=== PATIENT | female | born 1995 | race Caucasian/White ===

== ENCOUNTER 2018-12-04 12:50 | Emergency (ER) | payer OTHER ==
--- NOTE | 2018-12-04 13:15 | EDM.PDOC ---
ED HPI GENERAL MEDICAL PROBLEM - General Chief Complaint: Back Pain or Injury Stated Complaint: LOWER BACK PAIN Time Seen by Provider: 12/04/18 13:05 Source of Information: Reports: Patient History Limitations: Reports: No Limitations - History of Present Illness INITIAL COMMENTS - FREE TEXT/NARRATIVE: 23 YO WF presents to ER complaining of low back pain which began 3 days ago. Pt reports no known injury or history of back problems. Pt states her pain is right lower that radiates to her buttock and right knee. Pt denies any weakness or numbness. Pt able to ambulate but states movements makes her pain worse. Pt unsure if she might be but denies dysuria, urinary frequency or urgency. Pt denies any fever/chills, no nausea/vomiting and no saddle paraesthesias. 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, NSAIDS - Related Data Allergies Allergy/AdvReac Type Severity Reaction Status Date / Time Penicillins Allergy Rash Verified 12/04/18 13:38 Home Meds: Home Meds Nitrofurantoin Monohyd/M-Cryst [Macrobid 100 mg Capsule] 100 mg PO BID #10 capsule 12/04/18 [Rx] traMADol [Ultram] 50 mg PO Q6H PRN #10 tab 12/04/18 [Rx] ED ROS GENERAL - Review of Systems Review Of Systems: See Below Constitutional: Reports: No Symptoms HEENT: Reports: No Symptoms Respiratory: Reports: No Symptoms Cardiovascular: Reports: No Symptoms Endocrine: Reports: No Symptoms GI/Abdominal: Reports: No Symptoms : Reports: No Symptoms Musculoskeletal: Reports: Back Pain Skin: Reports: No Symptoms Neurological: Reports: No Symptoms Psychiatric: Reports: No Symptoms Hematologic/Lymphatic: Reports: No Symptoms ED EXAM,LOWER BACK PAIN/INJURY - Physical Exam Exam: See Below Exam Limited By: No Limitations General Appearance: Alert, WD/WN, No Apparent Distress Head: Atraumatic, Normocephalic Neck: Normal Inspection, Supple, Non-Tender, Full Range of Motion Respiratory/Chest: No Respiratory Distress, Lungs Clear, Normal Breath Sounds, No Accessory Muscle Use, Chest Non-Tender Cardiovascular: Normal Peripheral Pulses, Regular Rate, Rhythm, No Edema, No Gallop, No JVD, No Murmur, No Rub GI/Abdominal: Normal Bowel Sounds, Soft, Non-Tender, No Organomegaly, No Distention, No Abnormal Bruit, No Mass Back Exam: Muscle Spasm, Paraspinal Tenderness Extremities: Normal Inspection, Normal Range of Motion, Non-Tender, No Pedal Edema, Normal Capillary Refill Neurological: Alert, Normal Mood/Affect, Normal Dorsiflexion, CN II-XII Intact, Normal Plantar Flexion, Normal Gait, Normal Reflexes, No Motor/Sensory Deficits , Oriented x 3 Course - Vital Signs Last Recorded V/S: Last Vital Signs Temp 36.8 C 12/04/18 13:22 Pulse 97 12/04/18 13:22 Resp 18 12/04/18 13:22 BP 141/67 H 12/04/18 13:22 Pulse Ox 99 12/04/18 13:22 - Orders/Labs/Meds Labs: Laboratory Tests 12/04/18 12/04/18 Range/Units 13:35 13:35 Specimen Type Urinvoid Urine Color Yellow (YELLOW) Urine Appearance Clear (CLEAR) Urine pH 5.5 (5.0-9.0) Ur Specific Quinn >= 1.030 (1.005-1.030) Urine Protein Trace H (NEGATIVE) mg/dL Urine Glucose (UA) Negative (NEGATIVE) mg/dL Urine Ketones 40 H (NEGATIVE) mg/dL Urine Occult Blood Negative (NEGATIVE) Urine Nitrite Negative (NEGATIVE) Urine Bilirubin Small H (NEGATIVE) Urine Urobilinogen 1.0 (0.2-1.0) E.U./dL Ur Leukocyte Esterase Negative (NEGATIVE) Urine RBC 0-5 (0-5) /HPF Urine WBC 0-5 (0-5) /HPF Ur Epithelial Cells Many H /LPF Urine Bacteria Many H (NONE TO FEW) /HPF Urine Mucus Many H (NEGATIVE) /LPF Urine HCG, Qual Positive H (NEGATIVE) Departure - Departure Time of Disposition: 14:17 Disposition: Home, Self-Care 01 Condition: Good Clinical Impression: Qualifiers: Weeks of gestation: less than 8 weeks Qualified Code(s): Z3A.01 - Less than 8 weeks gestation of Sciatica Qualifiers: Laterality: right Qualified Code(s): M54.31 - Sciatica, right side Urinary tract infection Qualifiers: Urinary tract infection type: site unspecified Hematuria presence: without hematuria Qualified Code(s): N39.0 - Urinary tract infection, site not specified - Discharge Information Prescriptions: Nitrofurantoin Monohyd/M-Cryst [Macrobid 100 mg Capsule] 100 mg PO BID #10 capsule traMADol [Ultram] 50 mg PO Q6H PRN #10 tab PRN Reason: Pain Instructions: Urine Culture and Sensitivity Testing, and Urinary Tract Infection, Sciatica, [id number] Referrals: Siomara Denis PA-C [Primary Care Provider] - Forms: ED Department Discharge - Assessment/Plan Assessment:: 1. by urine HCG 2. right sided sciatica 3. Urinary tract infection Plan: 1. discharge home 2. macrobid 100mg PO BID x 7 days 3. ultram 50mg PO Q6 #10 4. follow up in clinic for urine culture results and recheck 5. return to ER for worsening symptoms
[2018-12-04] MEDS ORDERED: traMADol 50 MG Tab PO ONE (14:20)
[2018-12-04] MEDS ORDERED: Nitrofurantoin Monohydrate/Macrocrystalline 100 MG Cap PO SCH (14:30)
== END 2018-12-04 14:50 | disposition home or self-care (01) ==
LOC: KA.ED 12:50
DX: O23.41 Unspecified infection of urinary tract in pregnancy, first trimester (principal); O99.89 Other specified diseases and conditions complicating pregnancy, childbirth and the puerperium; M54.31 Sciatica, right side; Z3A.01 Less than 8 weeks gestation of pregnancy; Z88.0 Allergy status to penicillin
CPT/HCPCS: 81001; 81025; 87086; 99283; A9270-GY